=== PATIENT | female | born 1955 | race Caucasian/White ===

== ENCOUNTER → 2018-10-01 | Outpatient (CLI) | payer OTHER ==
--- NOTE | 2018-10-01 09:06 | RADIOLOGY REPORT (SQ) ---
EXAM DESCRIPTION: TOE RIGHT COMPLETED DATE/TIME: 10/01/2018 8:56 am REASON FOR STUDY: UNSPECIFIED INJURY OF RIGHT FOOT, INITIAL ENCOUNTER S99.921A UNSPECIFIED INJURY O F RIGHT FOOT, INITIAL ENCOUNTER COMPARISON: None. NUMBER OF VIEWS: Three views. TECHNIQUE: AP, lateral, and oblique images acquired of the right second toe. LIMITATIONS: None. FINDINGS: MINERALIZATION: Normal. BONES: There is a transverse comminuted fracture of the proximal phalanx of the 2nd digit. JOINTS: No effusions. SOFT TISSUES: No soft tissue swelling. No foreign body. OTHER: No other significant finding. IMPRESSION: Comminuted fracture of the proximal phalanx of the 2nd digit. COMMENT: SITE OF TRAUMA/COMPLAINT MARKED/STAMP COMPLETED: NO. TECHNICAL DOCUMENTATION: JOB ID: [id number] [employer]- All Rights Reserved Reading location - IP/workstation name: [email or web address]
== END ==
LOC: RAD 08:37
PROVIDERS: ATTEND Nurse Practitioner Family
DX: S92.511A Displaced fracture of proximal phalanx of right lesser toe(s), initial encounter for closed fracture (principal); X58.XXXA Exposure to other specified factors, initial encounter

== ENCOUNTER → 2019-07-06 | Outpatient (CLI) | payer OTHER ==
--- NOTE | 2019-07-07 18:08 | RADIOLOGY REPORT (SQ) ---
EXAM DESCRIPTION: CT SOFT TISSUE NECK COMBO COMPLETED DATE/TIME: 07/06/2019 1:50 pm REASON FOR STUDY: J38.7 OTHER DISEASES OF LARYNX J38.7 OTHER DISEASES OF LARYNX Q31.3 LARYNGOCELE COMPARISON: None. TECHNIQUE: Post IV contrasted scanning from skull base through lung apices with review of bone, soft tissue and lung windows. Reconstructed coronal and sagittal MPR images reviewed. All images stored on PACS. All CT scanners at this facility use dose modulation, iterative reconstruction, and/or weight based d osing when appropriate to reduce radiation dose to as low as reasonably achievable (ALARA). [facility]: Dose Right [facility]: CareDose [facility]: Dose Right [facility]: Teradose 4D [facility]: Pramana CONTRAST TYPE AND DOSE: contrast/concentration: Isovue 350.00 mg/ml; Total Contrast Delivered: 75.0 ml; Total Saline Delivered: 55.0 ml RENAL FUNCTION: Creatinine 0.5 RADIATION DOSE: . LIMITATIONS: None. FINDINGS: SKULL BASE: Intact. MAJOR SALIVARY GLANDS: No solid or cystic masses. No inflammatory changes. LYMPHADENOPATHY: No adenopathy. MUCOSAL MASSES OR ASYMMETRY: No mucosal masses or asymmetry. LARYNX/CORDS: There is a right-sided collection of air that extends from the region of the right vall eculum. This measures 2 cm in AP diameter at its largest.This extends through the thyrohyoid membran e. VASCULAR STRUCTURES: The major vessels are patent. LUNG APICES: This extends through the thyrohyoid membrane BONES: Intact. THYROID: Normal size. No masses. PARANASAL SINUSES: Clear. OTHER: No other significant finding. 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 TECHNICAL DOCUMENTATION: JOB ID: [id number] Quality ID # [id number]: Final reports with documentation of one or more dose reduction techniques (e.g., Au tomated exposure control, adjustment of the mA and/or kV according to patient size, use of iterative reconstruction technique) 2010 [employer]- All Rights Reserved Reading location - IP/workstation name: [email or web address]
== END ==
LOC: RAD 13:21
PROVIDERS: ATTEND Otolaryngology
DX: J38.7 Other diseases of larynx (principal); Q31.3 Laryngocele
CPT/HCPCS: 70492; 82565

== ENCOUNTER → 2020-06-08 | Outpatient (CLI) | payer OTHER ==
--- NOTE | 2020-06-08 12:50 | RADIOLOGY REPORT (SQ) ---
EXAM DESCRIPTION: U/S RETROPERITON (RENAL/AORTA) IMAGES COMPLETED DATE/TIME: 06/08/2020 11:55 am REASON FOR STUDY: (R31.9)HEMATURIA, UNSPECIFIED R31.9 HEMATURIA, UNSPECIFIED COMPARISON: None. TECHNIQUE: Dynamic and static grayscale images acquired of the kidneys and bladder and recorded on P ACS. Additional selected color Doppler and spectral images recorded. LIMITATIONS: None. FINDINGS: RIGHT KIDNEY: Normal size. Normal echogenicity. No solid or suspicious masses. No hydronep hrosis. Multiple small echogenic foci suggesting small intrarenal calculi. LEFT KIDNEY: Normal size. Normal echogenicity. No solid or suspicious masses. No hydronephrosis. Mu ltiple small echogenic foci suggesting small intrarenal calculi. BLADDER: No masses. Ureteral jets are seen. OTHER FINDINGS: No other significant finding. IMPRESSION: Nonobstructing intrarenal calculi bilaterally. TECHNICAL DOCUMENTATION: JOB ID: [id number] 2010 [employer]- All Rights Reserved Reading location - IP/workstation name: [email or web address]
== END ==
LOC: RAD 11:28
PROVIDERS: ATTEND Nurse Practitioner Family
DX: N20.0 Calculus of kidney (principal)
CPT/HCPCS: 76770